=== PATIENT | female | born 1960 ===

== ENCOUNTER 2017-12-03 10:37 | Emergency (ER) | payer BC ==
[2017-12-03 11:44] VITALS: BP 130/59
--- NOTE | 2017-12-03 12:32 | ED ---
Skin Complaint - HPI Summary HPI Summary: Dog bite this morning while biking. This dog has been seen before by the patient and she knows which house it belongs to. her tetanus was 2016. No numbness or tingling. - History of Current Complaint Chief Complaint: [facility] Time Seen by Provider: 12/03/17 12:17 Stated Complaint: DOG BITE - LEFT LEG 12/03 Hx Obtained From: Patient Hx Last Menstrual Period: 8yr Onset/Duration: Started Hours Ago Skin Exposure Onset/Duration: Hours Ago Timing: Constant, Lasting Hours Onset Severity: Moderate Current Severity: Moderate Pain Intensity: 1 Skin Location: Discrete, Leg Aggravating Symptom(s): Touch Alleviating Symptom(s): Nothing Associated Signs & Symptoms: Negative Related History: Trauma, Possible Reaction to: Animal - Allergy/Home Medications Allergies/Adverse Reactions: Allergies Allergy/AdvReac Type Severity Reaction Status Date / Time Penicillins Allergy Rash Verified 12/03/17 11:33 hay fever Allergy Eyes Uncoded 12/03/17 11:33 Itchy/Swollen/Red/Watery Home Medications: Home Medications Calcium Carbonate [Calcium] 1,000 - 1,200 mg PO DAILY 12/03/17 [History Confirmed 12/03/17] Gluc Arteaga/Chondro Arteaga A/Vit C/Mn [Glucosamine Chondroitin] 1 tab PO DAILY 12/03/17 [History Confirmed 12/03/17] Letrozole [Femara] 2.5 mg PO DAILY 12/03/17 [History Confirmed 12/03/17] PMH/Surg Hx/FS Hx/Imm Hx Previously Healthy: Yes - Cancer History Cancer Type, Location and Year: breast - Surgical History Surgery Procedure, Year, and Place: lumpectomy Infectious Disease History: No Infectious Disease History: Denies: Traveled Outside the [place] in Last 30 Days - Family History Known Family History: Positive: Other - no related family history. - Social History Alcohol Use: Occasionally Substance Use Type: Reports: None Smoking Status (MU): Never Smoked Tobacco Review of Systems Positive: Other - laceration. All Other Systems Reviewed And Are Negative: Yes Physical Exam Triage Information Reviewed: Yes Vital Signs On Initial Exam: Initial Vitals Temp Pulse Resp BP Pulse Ox 98.1 F 76 18 130/59 100 12/03/17 11:36 12/03/17 11:36 12/03/17 11:36 12/03/17 11:36 12/03/17 11:36 Vital Signs Reviewed: Yes Appearance: Positive: Well-Appearing, No Pain Distress, Well-Nourished Skin: Positive: Other - Left lateral puncture wounds x3. No surrounding redness. Each 0.5 cm in length. Head/Face: Positive: Normal Head/Face Inspection Eyes: Positive: Normal ENT: Positive: Normal ENT inspection Neck: Negative: Nuchal Rigidity Respiratory/Lung Sounds: Negative: Decreased Breath Sounds, Unable to speak in full sentences, Fatigue Cardiovascular: Positive: Other - cap refill brisk. Abdomen Description: Negative: Distended Musculoskeletal: Negative: Edema Left, Edema Right Neurological: Positive: Sensory/Motor Intact, Alert, Oriented to Person Place, Time Diagnostics - Vital Signs Vital Signs Temp Pulse Resp BP Pulse Ox 12/03/17 11:36 98.1 F 76 18 130/59 100 - Laboratory Lab Statement: Any lab studies that have been ordered have been reviewed, and results considered in the medical decision making process. Course/Dx - Course Assessment/Plan: we discussed wound care in detail. She will return for any signs of infection. [facility] - Diagnoses Provider Diagnoses: Dog bite Discharge - Discharge Plan Condition: Good Disposition: HOME Prescriptions: Ciprofloxacin TAB* [Cipro 500 MG TAB*] 500 mg PO BID #20 tab metroNIDAZOLE [Flagyl] 500 mg PO BID #20 tablet Patient Education Materials: Animal Bite (ED) Referrals: Josey Colbert MD [Primary Care Provider] - 2 Days Additional Instructions: REturn for any worsening so we can check the wound.
== END 2017-12-03 12:37 | disposition home or self-care (01) ==
LOC: UCCORT 10:37
DX: J06.9 Acute upper respiratory infection, unspecified (principal); F17.200 Nicotine dependence, unspecified, uncomplicated
CPT/HCPCS: 99202; G0463